=== PATIENT | female | born 1985 | race Caucasian/White ===

== ENCOUNTER → 2020-07-03 | Day surgery (SDC) | payer MEDICARE ==
[~2020-07-03] MED LIST: AIMOVIG AU140 MG/1 M SC; ATARAX25 MG PO; CLONAZEPAM0.5 MG PO; ELAVIL50 MG PO; LAMICTAL100 MG PO; OMEPRAZOLE 20MG20 MG PO; PERCOCET 5-3251 EACH PO; PHENERGAN25 M1 PO; PRAZOSIN HCL5 MG PO; PRILOSEC20 MG PO; PROBIOTIC1 EAC1 PO; PROPRANOLOL HCL80 M1 PO; RISPERDAL 1MG TA1 MG PO; TIZANIDINE HCL4 M1 PO; TOPIRAMATE50 MG PO; TRAZODONE 100M100 MG PO; ZOLOFT100 MG PO
[2020-07-03 06:28] LABS: HCG (URINE) SCREEN NEGATIVE (NEGATIVE)
[2020-07-03 07:01] LABS: ALBUMIN 3.1 g/dL (3.4-5.0); BILIRUBIN - TOTAL 0.3 mg/dL (0.2-1.0); BUN/CREAT RATIO (CALC) 20.9 RATIO; CREATININE 0.86 mg/dL (0.51-0.95); GLOBULIN (CALCULATION) 3.6 g/dL; POTASSIUM 3.6 mmol/L (3.5-5.1); TOTAL PROTEIN 6.7 g/dL (6.4-8.2)
== END | disposition home or self-care (01) ==
LOC: FAS 06:00
PROVIDERS: Orthopaedic Surgery
DX: S83.241A Other tear of medial meniscus, current injury, right knee, initial encounter (principal); X58.XXXA Exposure to other specified factors, initial encounter; G47.30 Sleep apnea, unspecified; E66.01 Morbid (severe) obesity due to excess calories; E78.00 Pure hypercholesterolemia, unspecified; I10 Essential (primary) hypertension; K21.9 Gastro-esophageal reflux disease without esophagitis; Z98.890 Other specified postprocedural states; Z88.1 Allergy status to other antibiotic agents; Z88.2 Allergy status to sulfonamides; Z88.0 Allergy status to penicillin; Z20.822 Contact with and (suspected) exposure to COVID-19; Z99.81 Dependence on supplemental oxygen
CPT/HCPCS: 36415; 80053; 84703; J1100; J1170; J1885; J2250; J2405; J2704; J3010; J7120